=== PATIENT | male | born 1955 | race African-American/Black ===

== ENCOUNTER 2016-08-03 09:56 | Emergency (ER) | payer OTHER ==
[2016-08-03] MEDS ORDERED: DUONEB INH ONE (12:08)
== END 2016-08-03 12:23 | disposition home or self-care (01) ==
LOC: FASTR 09:56
DX: J20.9 Acute bronchitis, unspecified (principal); J00 Acute nasopharyngitis [common cold]; E11.9 Type 2 diabetes mellitus without complications; Z79.4 Long term (current) use of insulin
CPT/HCPCS: 71020; 87804; 87880; 94640